=== PATIENT | female | born 1980 | race Hispanic/Latino ===

== ENCOUNTER 2020-09-27 19:35 | Emergency (ER) | payer OTHER ==
[2020-09-27] MEDS ORDERED: METOPROLOL TARTRATE 25 MG TAB ONE (21:46)
[2020-09-27] MEDS ORDERED: CLINDAMYCIN HCL 150 MG CAP ONE (21:48)
[2020-09-27] MEDS ORDERED: NITROGLYCERIN 1GM/1 INCH PACKET TD ONE (23:48)
== END 2020-09-27 22:08 | disposition home or self-care (01) ==
LOC: EDH 19:35
DX: L03.314 Cellulitis of groin (principal)